=== PATIENT | female | born 1980 | race Caucasian/White ===

== ENCOUNTER 2022-05-26 10:25 | Inpatient (IN) | payer MEDICAID ==
[~2022-05-26] VITALS: Ht 160 cm; Wt 107.5 kg
[2022-05-26 10:45] VITALS: BP 143/96
--- NOTE | 2022-05-26 10:51 | NUR ---
PT AMBULATED TO LOBBY
--- NOTE | 2022-05-26 11:40 | NUR ---
PT AMBULATED TO BED 8
[2022-05-26] MEDS ORDERED: MORPHINE SULFATE 2 MG/ML SYR IM STA (11:54)
[2022-05-26] MEDS ORDERED: ONDANSETRON 4 MG ODT PO ONE (11:55)
[2022-05-26] MEDS ORDERED: KETOROLAC 30 MG/ML VIAL IM ONE (11:55)
[2022-05-26] MEDS ORDERED: FAMOTIDINE 20 MG TAB PO ONE (11:55)
--- NOTE | 2022-05-26 12:34 | NUR ---
41 y/o female c/o epigastric pain x yesterday. Rates pain 9/10, sharp, constant that radiates to lower abdomen. Denies nvd, fever, chills, dysuria, sob, or cp. Took OTC pain relief from [place] without relief. Abdomen is soft, flat, bowel sounds active x4. PMH: HTN NKA
[2022-05-26 12:36] LABS: BASOPHILS % (AUTO) 0.3 % (0.0-2.0); EOSINOPHILS # (AUTO) 0.1 K/uL (0-0.4); EOSINOPHILS % (AUTO) 1.2 % (0.0-4.0); HEMATOCRIT 37.1 % (36-48); HEMOGLOBIN 12.4 g/dL (12.0-16.0); LYMPHOCYTES # (AUTO) 1.6 K/uL (2.5-16.5); LYMPHOCYTES % (AUTO) 15.9 % (20.5-51.1); MEAN CORPUSCULAR HEMOGLOBIN 29 pg (27-31); MEAN CORPUSCULAR HGB CONC 34 g/dL (33-37); MEAN CORPUSCULAR VOLUME 87.7 fL (80-94); MONOCYTES # (AUTO) 1.1 K/uL (0.8-1.0); MONOCYTES % (AUTO) 11.6 % (1.7-9.3); PLATELET COUNT (AUTO) 212 K/uL (140-450); RED BLOOD CELL COUNT(AUTO) 4.23 MIL/uL (4.20-5.40); RED CELL DISTRIBUTION WIDTH 14.4 % (11.6-13.7); WHITE BLOOD COUNT (AUTO) 9.8 K/uL (4.8-10.8)
[2022-05-26 12:41] LABS: ANION GAP 10.3 (8-16); CARBON DIOXIDE 29.9 mmol/L (21-32); CREATININE 0.8 mg/dL (0.6-1.3); POTASSIUM 3.2 mmol/L (3.5-5.1); TOTAL BILIRUBIN 2.1 mg/dL (0.0-1.0)
[2022-05-26] MEDS ORDERED: SEVOFLURANE 250 ML BTL INH ONE ×2 (13:27→15:00)
[2022-05-26] MEDS ORDERED: NACL 0.9% 1,000 ML IV ONE (13:40)
[2022-05-26] MEDS ORDERED: metroNIDAZOLE 500 MG/NS PREMIX 100 ML IV ONE (13:40)
[2022-05-26] MEDS ORDERED: POTASSIUM CHL 40 MEQ/ D5-1/2NS 1,000 ML IV ONE (13:40)
[2022-05-26] MEDS ORDERED: KCL 20 MEQ/WATER INJ PREMIX 100 ML IV ONE (13:50)
[2022-05-26] MEDS ORDERED: AMLO10TA88 PO (14:26)
--- NOTE | 2022-05-26 14:36 | NUR ---
lab at bedside
--- NOTE | 2022-05-26 14:38 | NUR ---
Dr hayden at bedside for evaluation, using staff anesthetist #[id number]
[2022-05-26] MEDS ORDERED: cefTRIAXone 1,000 MG VIAL ONE (14:49)
[2022-05-26] MEDS ORDERED: HYDR25TA32 PO (15:03)
--- NOTE | 2022-05-26 15:17 | NUR ---
Patient will be admitted to care of [facility]. Admited to [facility]. Belongings list completed.
--- NOTE | 2022-05-26 15:17 | NUR ---
PT TAKEN TO OR VIA GURNEY. TRANSFER OF CARE AT THIS TIME.
[2022-05-26] MEDS ORDERED: BUPIVACAINE MPF 0.25% 10 ML VIAL INJ ONE (15:23)
[2022-05-26] MEDS ORDERED: LIDOCAINE/EPI MPF 1%1:200000 30 ML VIAL INJ ONE (15:23)
[2022-05-26] MEDS ORDERED: POTASSIUM CHLORIDE 10 MEQ TABER PO PRN (15:25)
[2022-05-26] MEDS ORDERED: ACETAMINOPHEN 325 MG TAB PO PRN (15:25)
[2022-05-26] MEDS ORDERED: MORPHINE SULFATE 2 MG/ML SYR IVP PRN ×2 (15:25→16:45)
[2022-05-26] MEDS ORDERED: guaiFENesin DM 200/20 MG-10 ML 10 ML UDC PO PRN (15:25)
[2022-05-26] MEDS ORDERED: HYDROcodone/APAP 7.5/325 MG 1 TAB PO PRN (15:25)
[2022-05-26] MEDS ORDERED: ONDANSETRON 4 MG/2 ML VIAL IM/IVP PRN (15:25)
[2022-05-26] MEDS ORDERED: ZOLPIDEM 5 MG TAB PO PRN (15:25)
[2022-05-26] MEDS ORDERED: DOCUSATE SODIUM 100 MG GELCAP PO PRN (15:25)
[2022-05-26] MEDS ORDERED: fentaNYL citrate 0.05 MG/ML VIAL ONE (15:36)
[2022-05-26 15:59] LABS: MAGNESIUM 1.9 mg/dL (1.8-2.4); PHOSPHORUS 3.5 mg/dL (2.5-4.9)
[2022-05-26 16:04] LABS: PROTHROMBIN TIME 10.4 secs (10.8-13.4)
[2022-05-26] MEDS ORDERED: PROPOFOL 200 MG/20 ML VIAL IV ONE ×2 (16:29)
[2022-05-26] MEDS ORDERED: SUCCINYLCHOLINE CHLORIDE 200 MG/10 ML VIAL IVP ONE (16:29)
[2022-05-26] MEDS ORDERED: KETOROLAC 30 MG/ML VIAL ONE (16:30)
[2022-05-26] MEDS ORDERED: ONDANSETRON 4 MG/2 ML VIAL ONE (16:30)
[2022-05-26] MEDS ORDERED: ROCURONIUM 50 MG/5 ML VIAL IV ONE (16:30)
[2022-05-26] MEDS ORDERED: NEOSTIGMINE 1:1000 10 MG/10 ML VIAL ONE (16:30)
[2022-05-26] MEDS ORDERED: GLYCOPYRROLATE 0.2 MG/ML VIAL ONE ×3 (16:31)
[2022-05-26] MEDS ORDERED: HYDROmorphone 1 MG/ML AMP IVP PRN (16:45)
[2022-05-26] MEDS ORDERED: MORPHINE SULFATE 4 MG/ML SYR IV PRN (16:45)
[2022-05-26] MEDS ORDERED: ONDANSETRON 4 MG/2 ML VIAL IV PRN (16:45)
[2022-05-26] MEDS ORDERED: METOCLOPRAMIDE 10 MG/2 ML INJ VIAL IVP PRN (17:08)
[2022-05-26] MEDS ORDERED: LABETALOL 20 MG/4 ML VIAL IVP PRN (17:08)
[2022-05-26] MEDS ORDERED: hydrALAZINE 20 MG/ML VIAL IVP PRN (17:09)
[2022-05-26] MEDS ORDERED: LACTATED RINGERS 1,000 ML IV SCH (17:10)
[2022-05-26] MEDS: HYDROmorphone 1 MG/ML AMP IVP PRN ×2 (17:35→18:10)
[2022-05-26] MEDS ORDERED: HYDROmorphone PFS 2 MG/ML SYR ONE (17:35)
--- NOTE | 2022-05-26 18:00 | NUR ---
RECEIVED PT FROM QUENCHER OPERATOR, DEMETRIUS, PT IS AWAKE, ALERT AND ORIENTED, LYING SUPINE ON THE BED, WITH SIDE RAILS UP AND CALL LIGHT WITHIN REACH, IV LINE NOTED ON THE LAC G. 18 WITH NS INFUSING, PT IS ON ROOM AIR SATURATING AT 92% BUT GOES DOWN TO 88%, PT WAS PLACED ON O2 2L NC, PT HAD A LAPAROSCOPIC APPENDECTOMY DONE WITH 3 SURGICAL INCISIONS NOTED ON DERMABOND, DRY AND INTACT, NO SIGN OF DISTRESS NOTED AND WILL CONTINUE TO MONITOR PT.
--- NOTE | 2022-05-26 18:15 | NUR ---
MRSA SWAB DONE TO PT NOW.
[2022-05-26] MEDS: NACL 0.9% 1,000 ML IV SCH (18:19)
--- NOTE | 2022-05-26 18:42 | NUR ---
PT WAS ASSISTED TO AMBULATE TO THE BATHROOM TO VOID.
--- NOTE | 2022-05-26 19:20 | NUR ---
ENDORSED PT TO NIGHT RN FOR CONTINUITY OF CARE. PT IS STABLE AT THIS TIME.
--- NOTE | 2022-05-26 19:21 | NUR ---
RECEIVED SHIFT REPORT FROM ELIZABETH CUENCA. PATIENT WAS STABLE DURING SHIFT REPORT. PATIENT IN BED WITH SPOUCE AT BEDSIDE. PATIENT IS A CONTINUEATION OF AN ADMISSION. FINAL POST OF VITAL SIGNS WERE TAKEN AND PLACED IN PATIENT CHART. PATIENT ON ROOM AIR AND NO NOTED S/S RESPIRATORY DISTRESS. PAIN/DISCOMFORT LEVEL NOTED AT A 5/10 AND MEDICATION WILL BE GIVEN SHORTLY. PATIENT IS CHINESE SPEAKING AND IS ABLE TO COMMUNICATE IN [place] HER NEEDS AND WANTS. PATIENT IS AWARE TO WHY SHE IS IN THE HOSPITAL. CALLED HIS NAME. SIDE RAILS UP X 2 FOR COMFORT. KEPT CLEAN AND DRY. BED NOTED AT THE LOWEST LEVEL SEMI MCMAHON POSITION. CALL LIGHT WITHIN REACH. [email or web address]
--- NOTE | 2022-05-26 19:45 | NUR ---
Patient's Plan of Care was discussed and reviewed with JAREN GARCIA.
[2022-05-26 20:00] VITALS: BP 121/74
--- NOTE | 2022-05-26 20:00 | NUR ---
DID ASSESSMENT ON PATIENT. PATIENT IS A&OX4, POST LAPROSCOPIC APENDECTOMY SURGERY, LAPROSCOPIC SITES WITH DERMA [place]. PATIENT IS ON NC 2L. BREATHING IS NORMAL WITH SYMMETRICAL RISE AND FALL OF CHEST. HEART AND LUNGS ARE WITHIN NORMAL LIMITS (S1S2 HEARD, LUNGS SOUND CLEAR). WILL INFORM ELECTROPLATING SALES REPRESENTATIVE JOSE OF ASSESSMENT FINDINGS.
[2022-05-26] MEDS: HYDROcodone/APAP 5/325 MG 1 TAB TAB PO PRN (20:27)
[2022-05-26] MEDS: metroNIDAZOLE 500 MG/NS PREMIX 100 ML IV SCH (21:33)
--- NOTE | 2022-05-26 21:40 | NUR ---
PATIENT NOTED WITH OXYGEN OFF SATURATION AT 95%. PATIENT ASLEEP. SIDE RAILS UP X 2 FOR COMFORT AND ADJUSTMENTS. CALL LIGHT WITHIN REACH. NURSING WILL CONTINUE TO MONITOR. [email or web address]
--- NOTE | 2022-05-26 21:46 | NUR ---
ADMINISTERED FAGYL IVPB AT 100 ML. PATIENT WAS SLEEPING. WILL INFORM JAREN GARCIA.
--- NOTE | 2022-05-26 23:17 | NUR ---
PATIENT ASLEEP IN BED CALL LIGHT WITHIN REACH. PATIENT WAS GIVEN A URINE CUP FOR URINE COLLECTION AND NURSING WILL ANTICIPATE URINE SAMPLE. SIDE RAILS UP X 2. [email or web address]
[2022-05-27] MEDS: HYDROcodone/APAP 5/325 MG 1 TAB TAB PO PRN ×2 (01:39→08:53)
[2022-05-27 01:48] LABS: APPEARANCE,URINE CLEAR (CLEAR); BILIRUBIN,URINE NEGATIVE (NEGATIVE); BLOOD, URINE NEGATIVE (NEGATIVE); COLOR,URINE ORANGE (YELLOW); LEUKOCYTE ESTERASE ,URINE NEGATIVE (NEGATIVE); NITRITE, URINE NEGATIVE (NEGATIVE); PH,URINE 7.5 (5.0-9.0); UGLUCOSE NEGATIVE (NEGATIVE)
--- NOTE | 2022-05-27 01:58 | NUR ---
PATIENT WAS ABLE TO GO TO THE RESTROOM FOR URINE SAMPLE. PATIENT REQUEST PRN FOR MODERATE PAIN. NURSING ASSISTED TO THE RESTROOM AND BACK TO BED. PATIENT HAS NO RESPIRATORY DISTRESS. PICTURES OF SURGICAL INCISIONS WERE TAKEN AND PLACED IN THE CHART. SIDE RAILS X 2 CALL LIGHT WITHIN REACH. [email or web address]
[2022-05-27 02:13] LABS: BARBITURATE, URINE NEGATIVE ng/ml (NEG <=200); BENZODIAZEPINE, URINE NEGATIVE ng/mL (NEG <=200); CANNABINOID, URINE NEGATIVE ng/mL (NEG <=50); COCAINE, URINE NEGATIVE ng/mL (NEG <=300); PHENCYCLIDINE SCREEN,URINE NEGATIVE ng/mL (NEG <=25)
[2022-05-27 02:14] LABS: OPIATE, URINE NEGATIVE ng/mL (NEG <=2000)
--- NOTE | 2022-05-27 03:34 | NUR ---
PATIENT IN BED ASLEEP. NO NOTED PAIN OR RESPIRATORY DISTRESS. SIDE RAILS UP X 2 CALL LIGHT WITHIN REACH. [email or web address]
[2022-05-27 04:00] VITALS: BP 130/83
--- NOTE | 2022-05-27 05:23 | NUR ---
PATIENT EASY TO AROUSE. KEPT CLEAN AND DRY ALL NIGHT. NO NOTED S/S OF PAIN/DISCOMFORT. NO NOTED RESPIRATORY DISTRESS DURING FINAL SHIFT VITAL SIGNS. SIDE RAILS UP X 2 FOR SAFETY AND COMFORT. CALL LIGHT WITHIN REACH. [email or web address]
[2022-05-27] MEDS: metroNIDAZOLE 500 MG/NS PREMIX 100 ML IV SCH (05:58)
--- NOTE | 2022-05-27 06:03 | NUR ---
ADMINISTERED 0500 IVPB. PATIENT WAS SLEEPING UPON ENTERING ROOM. BREATHING WAS NORMAL WITH SYMMETRICAL RISE AND FALL OF CHEST. WILL INFORM BORDER MACHINE OPERATOR JOSE OF MEDICATION ADMINISTRATION.
--- NOTE | 2022-05-27 07:14 | NUR ---
RECEIVED REPORT FROM STEEL WHEEL ENGRAVER NURSE FOR CONTINUITY OF CARE. PATIENT AWAKE ALERT WALKING FROM TOILET. RESPIRATION EVEN AND NOT LABORED NO SHORTNESS OF BREATH. ON ROOM AIR. IV SITE LEFT AC GAGE18 RUNNING NS AT 60 CC/HOURS. ALL SAFETY MEASURE IN PLACE COMPLAIN OF PAIN ON SURGICAL SITE WILL GIVE MEDICATION ORDER.
--- NOTE | 2022-05-27 07:18 | NUR ---
ENDORSED PATIENT TO JOHN EASTMAN, PATIENT WAS STABLE AT THE CHANGE OF SHIFT. [email or web address]
[2022-05-27 07:26] LABS: BASOPHILS % (AUTO) 0.4 % (0.0-2.0); EOSINOPHILS # (AUTO) 0.1 K/uL (0-0.4); EOSINOPHILS % (AUTO) 1.2 % (0.0-4.0); HEMOGLOBIN 11.8 g/dL (12.0-16.0); LYMPHOCYTES # (AUTO) 1.3 K/uL (2.5-16.5); LYMPHOCYTES % (AUTO) 14.3 % (20.5-51.1); MEAN CORPUSCULAR HEMOGLOBIN 30 pg (27-31); MEAN CORPUSCULAR HGB CONC 34 g/dL (33-37); MEAN CORPUSCULAR VOLUME 88.3 fL (80-94); MONOCYTES # (AUTO) 0.8 K/uL (0.8-1.0); MONOCYTES % (AUTO) 8.7 % (1.7-9.3); NEUTROPHILS % (AUTO) 75.4 % (42.2-75.2); PLATELET COUNT (AUTO) 202 K/uL (140-450); RED BLOOD CELL COUNT(AUTO) 3.97 MIL/uL (4.20-5.40); RED CELL DISTRIBUTION WIDTH 14.3 % (11.6-13.7); WHITE BLOOD COUNT (AUTO) 9.3 K/uL (4.8-10.8)
--- NOTE | 2022-05-27 07:29 | NUR ---
RECEIVED REPORT FROM AWNING INSTALLER NURSE FOR CONTINUITY OF CARE. PATIENT ASLEEP NO DISTRESS NOTED ON ROOM AIR. IV SITE ON RIGHT AC OSWALD 20 RUNNING NS AT 100 CC/H. ALL SAFETY MEASURE IN PLACE.
[2022-05-27 07:38] LABS: ANION GAP 12.5 (8-16); CARBON DIOXIDE 25.6 mmol/L (21-32); CREATININE 0.5 mg/dL (0.6-1.3); POTASSIUM 3.1 mmol/L (3.5-5.1)
--- NOTE | 2022-05-27 08:00 | NUR ---
Patient's Plan of Care was discussed and reviewed with JAREN: [email or web address]
[2022-05-27 08:04] LABS: ALBUMIN 2.5 g/dL (3.4-5.0); BILIRUBIN,DIRECT 0.4 mg/dL (0.0-0.3)
[2022-05-27] MEDS ORDERED: POTASSIUM CHLORIDE 10 MEQ TABER PO PRN (08:05)
[2022-05-27] MEDS: NACL 0.9% 1,000 ML IV SCH (08:55)
[2022-05-27] MEDS ORDERED: amLODIPine 5 MG TAB PO SCH (09:00)
[2022-05-27] MEDS ORDERED: ENOXAPARIN 40 MG/0.4 ML SYR SUBQ SCH (09:00)
[2022-05-27] MEDS ORDERED: NON-FORMULARY ITEM (Amlodipine Besylate 1 TAB) PO SCH (09:00)
[2022-05-27] MEDS ORDERED: PANTOPRAZOLE 40 MG TABEC PO SCH (09:00)
[2022-05-27] MEDS ORDERED: hydroCHLOROthiazide 25 MG TAB PO SCH (09:00)
[2022-05-27] MEDS ORDERED: LEVOFLOXACIN 500 MG/D5W PREMIX 100 ML IV SCH (09:00)
--- NOTE | 2022-05-27 09:01 | NUR ---
GIVEN ALL DUE MEDICATION AND RN GAVE IV ANTIBIOTIC TOLERATED WELL.
--- NOTE | 2022-05-27 10:14 | NUR ---
PATIENT HAS BEEN SCREENED AND CATEGORIZED MODERATE NUTRITION RISK. PATIENT WILL BE SEEN WITHIN 3-5 DAYS OF ADMISSION. 05/29/22-05/31/[address] REVIEWED BY ASAEL GOOD RD
--- NOTE | 2022-05-27 11:07 | NUR ---
PATIENT ON BED RESTING NO ADVERSE REACTION NOTED ON LEVAQUIN IV ANTIBIOTIC FOR S/P LAP APPENDECTOMY. 3 SURGICAL SITE ON ABDOMEN DERMA [place] INTACT NO BLEEDING OR SIGN AND SYMPTOMS OF INFECTION. CALL LIGHT WITH IN EASY REACH. DENIES PAIN AT THIS TIME.
[2022-05-27] MEDS ORDERED: IBUP-2809 PO (11:31)
[2022-05-27 13:07] VITALS: BP 136/82
--- NOTE | 2022-05-27 14:06 | NUR ---
1400 NAME BAND REMOVED AND IV SITE REMOVED WITH CATHETER INTACT. PATIENT ALERT ORIENTED ABLE TO MAKE NEEDS KNOWN ON STABLE CONDITION. NO SIGN AND SYMPTOMS OF INFECTION OR ANY ADVERSE REACTION FROM S/P LA APPENDECTOMY AND IV ANTIBIOTIC. WHEELED PATIENT TO HER DAUGHTER PRIVATE VEHICLE WITH ALL BELONGING AND DISCHARGE PACKET.
== END 2022-05-27 14:35 | disposition home or self-care (01) | DRG 234 ==
LOC: MED 10:25 → MTU 15:17
PROVIDERS: ADMIT Student in an Organized Health Care Education/Training Program; ATTEND Student in an Organized Health Care Education/Training Program
PROC: 0D9W4ZZ Drainage of Peritoneum, Percutaneous Endoscopic Approach (ICD-10-PCS; 2022-05-26)
PROC: 0DTJ4ZZ Resection of Appendix, Percutaneous Endoscopic Approach (ICD-10-PCS; principal; 2022-05-26 14:45)
DX: K35.30 Acute appendicitis with localized peritonitis, without perforation or gangrene (principal); E44.1 Mild protein-calorie malnutrition; Z20.822 Contact with and (suspected) exposure to COVID-19; E87.6 Hypokalemia; E80.6 Other disorders of bilirubin metabolism; Z68.41 Body mass index [BMI] 40.0-44.9, adult
CPT/HCPCS: 36415; 80048; 80053; 80076; 80305; 81003; 82150; 82374; 83690; 83735; 84100; 85025; 85610; 85730; 87040; 87081; J0330; J0694; J0696; J1170; J1650; J1885; J1956; J2001; J2270; J2405; J2704; J2710; J3010; J3480; J3490; J7030; Q0162

== ENCOUNTER 2022-08-02 01:03 | Emergency (ER) | payer MEDICAID ==
[~2022-08-02] VITALS: Ht 160 cm; Wt 106.6 kg
[~2022-08-02 01:03] MED LIST: AMLO10TA88 PO; HYDR25TA32 PO; IBUP-2809 PO
[2022-08-02 01:52] VITALS: BP 156/89
--- NOTE | 2022-08-02 01:57 | NUR ---
PT TRIAGED AND VSS, PT SENT TO LOBBY WAITING AVAILABLE BED.
[2022-08-02 02:21] LABS: BASOPHILS # (AUTO) 0.1 K/uL (0.00-0.22); BASOPHILS % (AUTO) 0.6 % (0.0-2.0); EOSINOPHILS # (AUTO) 0.1 K/uL (0-0.4); EOSINOPHILS % (AUTO) 0.9 % (0.0-4.0); HEMATOCRIT 38.2 % (36-48); HEMOGLOBIN 12.7 g/dL (12.0-16.0); LYMPHOCYTES # (AUTO) 2.2 K/uL (2.5-16.5); LYMPHOCYTES % (AUTO) 21.1 % (20.5-51.1); MEAN CORPUSCULAR HEMOGLOBIN 29 pg (27-31); MEAN CORPUSCULAR HGB CONC 33 g/dL (33-37); MEAN CORPUSCULAR VOLUME 87.6 fL (80-94); MONOCYTES # (AUTO) 0.6 K/uL (0.8-1.0); NEUTROPHILS # (AUTO) 7.3 K/uL (1.8-7.7); NEUTROPHILS % (AUTO) 71.4 % (42.2-75.2); PLATELET COUNT (AUTO) 239 K/uL (140-450); RED BLOOD CELL COUNT(AUTO) 4.36 MIL/uL (4.20-5.40); RED CELL DISTRIBUTION WIDTH 14.8 % (11.6-13.7); WHITE BLOOD COUNT (AUTO) 10.2 K/uL (4.8-10.8)
--- NOTE | 2022-08-02 02:27 | NUR ---
PT TAKEN TO BED 6 VIA W/C.
[2022-08-02 02:37] LABS: CARBON DIOXIDE 28.9 mmol/L (21-32); CREATININE 0.6 mg/dL (0.6-1.3); POTASSIUM 3.9 mmol/L (3.5-5.1); TOTAL BILIRUBIN 0.4 mg/dL (0.0-1.0)
--- NOTE | 2022-08-02 02:56 | NUR ---
DR. MARTINEZ AT BEDSIDE.
--- NOTE | 2022-08-02 03:32 | NUR ---
X-Ray at bedside.
[2022-08-02] MEDS ORDERED: HYDROcodone/APAP 5/325 MG 1 TAB TAB PO ONE (03:40)
[2022-08-02] MEDS ORDERED: HYDROcodone/APAP 5/325 MG 1 TAB TAB ONE (03:44)
--- NOTE | 2022-08-02 04:42 | NUR ---
Dr. Chen finished with procedure at bedside pt tolerated well.
[2022-08-02 06:50] LABS: APPEARANCE,SPUN,BODY FLUID HAZY (CLEAR); APPEARANCE,UNSPUN,BODY FLUID HAZY (CLEAR); SPECIMENTYPE,BODY FLUID KNEE FLUID
[2022-08-02 06:51] LABS: COLOR,BODY FLUID LT YELLOW (LT YELLOW); GLUCOSE,BODY FLUID 48 mg/dL; POLYNUCLEAR, BODY FLUID 80 %; RBC, BODY FLUID 4000 /cu. mm.; TOTAL VOLUME,BODY FLUID 20 mL
--- NOTE | 2022-08-02 07:16 | NUR ---
Pt report given to JAREN Loera. Transfer of care at this time.
--- NOTE | 2022-08-02 07:21 | NUR ---
Report recieved from JOELLEN Meza for transfer of care.
[2022-08-02] MEDS ORDERED: IBUP-2213 PO (07:33)
[2022-08-02] MEDS ORDERED: PRED20TA5 PO (07:39)
--- NOTE | 2022-08-02 07:42 | NUR ---
Patient was assisted to restroom.
[2022-08-02 08:16] VITALS: BP 146/90
--- NOTE | 2022-08-02 08:16 | NUR ---
Patient discharged with v/s stable. Written and verbal after care instructions given. Patient alert, oriented and verbalized understanding of instructions. Ambulatory with steady gait. All questions addressed prior to discharge. ID band removed. Patient advised to follow up with PMD. Rx of Ibuprofen and Deltasone given. Opportunity to ask questions provided and answered.
--- NOTE | 2022-08-02 08:17 | NUR ---
Salvador virk in [facility] - 08/02/22 at 0824 by [email or web address] The patient's care was reviewed and supervised by Elizabeth Morales RN.
== END 2022-08-02 08:16 | disposition home or self-care (01) ==
LOC: MED 01:03
DX: M25.462 Effusion, left knee (principal)
CPT/HCPCS: 20610; 36415; 73562; 80053; 82945; 84157; 85025; 85651; 86140; 87070; 89051; 99284; Q0092